=== PATIENT | male | born 1985 | race Caucasian/White ===

== ENCOUNTER 2020-03-02 03:11 | Observation (INO) | payer OTHER ==
[~2020-03-02] VITALS: Ht 180.3 cm; Wt 83.9 kg
[2020-03-02 03:19] VITALS: BP 157/100
[2020-03-02] MEDS ORDERED: FLEXERIL PO (03:51)
[2020-03-02] MEDS ORDERED: NORCO 5-325 TA1 EAC1 PO (03:51)
[2020-03-02 04:42] LABS: ABSOLUTE BASOPHILS 0.1 thou/uL (0.0-0.2); ABSOLUTE EOSINOPHILS 0.1 thou/uL (0.0-0.7); ABSOLUTE LYMPHOCYTES 2.3 thou/uL (0.8-5.3); ABSOLUTE MONOCYTES 0.4 thou/uL (0.0-1.2); ABSOLUTE NEUTROPHILS 2.4 thou/uL (1.6-8.1); BASOPHILS 1.1 %; EOSINOPHILS 1.2 %; HEMOGLOBIN 14.5 gm/dL (14.0-18.0); LYMPHOCYTES 44.1 %; MCH 31.2 pg (26.0-34.0); MCHC 35.4 g/dL (28.0-37.0); MCV 88.2 fL (80.0-100.0); MONOCYTES 6.9 %; MPV 6.8 fl. (7.2-11.1); NUCLEATED RBCS 0 /100WBC; PLATELET COUNT* 199 thou/uL (150-400); POLYS 46.7 %; RBC 4.65 mil/uL (4.50-6.00); RDW-CV 12.8 % (10.5-14.5); WBC 5.2 thou/uL (4.0-11.0)
[2020-03-02 04:52] LABS: CALCIUM 8.1 mg/dL (8.5-10.1); POTASSIUM 3.8 mmol/L (3.5-5.1)
[2020-03-02 04:57] LABS: ALBUMIN 3.6 g/dL (3.4-5.0); TOTAL BILIRUBIN 0.4 mg/dL (<0.1-1.0); TOTAL PROTEIN 6.8 g/dL (6.4-8.2)
[2020-03-02 05:34] VITALS: BP 138/88
[2020-03-02 06:15] VITALS: BP 149/95
[2020-03-02 06:29] LABS: ESR (SEDRATE) 0 mm/hr (0-15)
--- NOTE | 2020-03-02 06:50 | NUR ---
PATIENT ARRIVED FROM ER TO 309 VIA W/CHAIR. PT ALERT/ORIENTED X4, COOPERATIVE, CALM. PT SAID HE ROLLED OVER IN BED AND LT KNEE POPPED OUT OF PLACE IN BENT POSITION AND IS UNABLE TO STRAIGHTEN IT. PT ORIENTED TO ROOM/POLICIES AND VERBALIZES UNDERSTANDING. FREQUENTLY USED ITEMS AND CALL LIGHT WITHIN REACH. SIDERAILS UPX2. PT INSTRUCTED TO CALL PRIOR TO GETTNG OUT OF BED. WILL CONTINUE TO MONITOR.
[2020-03-02 08:30] VITALS: BP 133/93
--- NOTE | 2020-03-02 14:07 | NUR ---
I went in to wrap patients left knee with the clinton wrap. He declined the wrap. I instructed him to let me know if he changes his mind and that I would be happy to wrap his knee.
[2020-03-02 16:30] VITALS: BP 136/95
--- NOTE | 2020-03-02 16:34 | NUR ---
Patient resting off and on. He is getting his pain medication as needed. He does have pillows under his left knee and gets up as needed to the bathroom using crutches and wit stand by assist. He is alert and oriented and is going to have an MRI tomorrow and already filled out the MRI sheet.
[2020-03-02 20:00] VITALS: BP 146/95
--- NOTE | 2020-03-03 06:00 | NUR ---
BEINNING OF SHIFT PATIENT WAS STILL COMPLAINING OF PAIN. PERCOCET WAS GIVEN WITH A LITTLE BETTER RELIEF. ABOUT 0 PATIENT CALLED OUT STATED HIS KNEE HAD POPPED BACK INTO PLACE. WENT IN TO SEE PATIENT AND HE STATED IT WAS STILL SORE BUT HE THOUGHT HE COULD PUT WEIGHT ON IT. SO GAMA WALKED THE HALLS A COUPLE TIMES AND TOOK A SHOWER. PATIENT WANTED TO GO HOME BUT CONVINCED HIM HE SHOULD STAY TILL TODAY TO GET AN MRI. WILL CONTINUE TO MONITOR.
[2020-03-03 07:40] VITALS: BP 139/90
[2020-03-03 12:16] VITALS: BP 139/90
--- NOTE | 2020-03-03 12:54 | NUR ---
PT A&OX4 VSS. NO C/O PAIN THIS SHIFT. PT HAS BEEN UP AD JODI, GAIT STEADY. PT HAS NO IV ACCESS PRESENT. PT TO MRI THIS AM, PT ABLE TO AMBULATE W/O PAIN OR DIFFICULTY. PT DC'D WITH UNDERSTANDING THAT HE IS TO F/U WITH [facility] IN 2 WEEKS. PT STATES UNDERSTANDING OF DC INSTRUCTIONS AND F/U INFORMATION PROVIDED. PT LEAVES UNIT ACCOMPANIED BY NURSING STAFF.
== END 2020-03-03 12:50 | disposition home or self-care (01) ==
LOC: M.ERS 03:11 → M.3W 04:32 → M.TBA-ER 04:32 → M.3W 05:24
PROVIDERS: Family Medicine; ADMIT Internal Medicine
DX: M25.562 Pain in left knee (principal); S83.8X2A Sprain of other specified parts of left knee, initial encounter; X58.XXXA Exposure to other specified factors, initial encounter; Y93.89 Activity, other specified; Y92.89 Other specified places as the place of occurrence of the external cause; R53.81 Other malaise; Y99.8 Other external cause status

== ENCOUNTER → 2020-03-13 | Outpatient (CLI) | payer OTHER ==
[~2020-03-13] MED LIST: FLEXERIL PO; NORCO 5-325 TA1 EAC1 PO
== END ==
LOC: M.LAB 09:44
PROVIDERS: ATTEND Orthopaedic Surgery
DX: Z01.812 Encounter for preprocedural laboratory examination (principal)

== ENCOUNTER → 2020-04-23 | Outpatient (CLI) | payer OTHER | LOC: M.LAB 09:24 | PROVIDERS: ATTEND Orthopaedic Surgery | DX: Z01.818 Encounter for other preprocedural examination (principal); S83.282D Other tear of lateral meniscus, current injury, left knee, subsequent encounter; Z11.59 Encounter for screening for other viral diseases; X58.XXXD Exposure to other specified factors, subsequent encounter ==